=== PATIENT | female | born 1990 | race Caucasian/White ===

== ENCOUNTER 2023-01-17 13:55 | Outpatient (CLI) | payer OTHER, SELFPAY ==
--- NOTE | 2023-01-17 15:00 | CRLHL7_ITS ---
For Patients: As a result of the Century Cures Act, medical imaging exams and procedure reports are released immediately into your electronic medical record. You may view this report before your referring provider. If you have questions, please contact your health care provider. INDICATION: Headaches for 2 months. TECHNIQUE: Noncontrast CT images acquired through the brain. COMPARISON: None. FINDINGS: The ventricles and sulci are within normal limits for patient age. No mass effect or midline shift. The mariscal-white differentiation is maintained. No acute intracranial hemorrhage or pathologic extra-axial fluid collection. The globes are symmetric. The calvarium is intact. The visualized paranasal sinuses and mastoid air cells are clear. IMPRESSION: No acute intracranial hemorrhage or mass effect. Please note that all CT scans at this facility use dose modulation, iterative reconstruction, and/or weight-based dosing when appropriate to reduce radiation dose to as low as reasonably achievable. Dictated by Jamaal Bacon MD @ 01/17/2023 6:33:06 PM (Electronically Signed)
== END 2023-01-17 13:56 | disposition home or self-care (01) ==
LOC: CT 13:56
PROVIDERS: PCP Nurse Practitioner Family; Visit Provider Nurse Practitioner Family
DX: R51.9 Headache, unspecified (principal)
CPT/HCPCS: 70450

== ENCOUNTER 2023-02-22 14:06 | Outpatient (CLI) | payer OTHER, SELFPAY ==
--- NOTE | 2023-02-22 14:30 | CRLHL7_ITS ---
For Patients: As a result of the Century Cures Act, medical imaging exams and procedure reports are released immediately into your electronic medical record. You may view this report before your referring provider. If you have questions, please contact your health care provider. INDICATION: Neck pain. TECHNIQUE: Multisequence MRI of the cervical spine without contrast. COMPARISON: Correlated with cervical spine radiographs dated 02/08/2023. FINDINGS: Normal alignment. Vertebral body heights are maintained. Bone marrow signal intensity is within normal limits. Mild intervertebral disc height loss is noted at C5-C6 and C6-C7. The cervical spinal cord is normal in signal intensity. The paraspinal soft tissues are within normal limits. Evaluation of the individual levels demonstrates: C2-C3 through C4-C5: No significant spinal canal or neural foraminal stenosis. C5-C6: Small posterior disc osteophyte complex without significant spinal canal stenosis. Mild bilateral neural foraminal narrowing resulting from combined uncovertebral and facet joint arthrosis. C6-C7: No significant spinal canal or neural foraminal stenosis. C7-T1: Mild bilateral facet hypertrophy no significant spinal canal or neural foraminal stenosis. IMPRESSION: 1. No evidence of acute injury. 2. Mild intervertebral disc height loss at C5-C6 and C6-C7. 3. At C5-C6, mild bilateral neural foraminal narrowing resulting from combined uncovertebral and facet joint arthrosis. Dictated by Pramod Jiménez MD @ 02/23/2023 9:43:43 AM (Electronically Signed)
== END 2023-02-22 14:07 | disposition home or self-care (01) ==
PROVIDERS: PCP Nurse Practitioner Family; Visit Provider Nurse Practitioner Family
DX: M54.2 Cervicalgia (principal); M50.222 Other cervical disc displacement at C5-C6 level
CPT/HCPCS: 72141